=== PATIENT | male | born 1975 | race Hispanic/Latino ===

== ENCOUNTER 2019-11-03 18:14 | Emergency (ER) | payer OTHER | END 2019-11-03 20:11 | disposition home or self-care (01) | LOC: EDH 18:14 | DX: R19.7 Diarrhea, unspecified (principal); Z20.828 Contact with and (suspected) exposure to other viral communicable diseases; Z72.0 Tobacco use | CPT/HCPCS: 87426; 99283; U0003 ==

== ENCOUNTER 2021-05-27 16:45 | Emergency (ER) | payer OTHER ==
[~2021-05-27] VITALS: Ht 172.7 cm; Wt 95.3 kg
[2021-05-27 18:19] VITALS: BP 115/73
[2021-05-27] MEDS ORDERED: ACET-2247 PO (18:56)
== END 2021-05-27 19:09 | disposition home or self-care (01) ==
LOC: EDH 16:45
DX: M79.651 Pain in right thigh (principal)
CPT/HCPCS: 73552